=== PATIENT | male | born 1965 | race Caucasian/White ===

== ENCOUNTER 2024-01-19 08:41 | Inpatient (IN) | payer OTHER, SELFPAY ==
[2024-01-19] VITALS (10 sets, daily range): BP systolic 133–159; BP diastolic 69–95; PULSE 89–107; RESP 20–28; TEMP 36.4–36.6; O2SAT 86–96; BMI 32.6
--- NOTE | ~2024-01-19 | XR_ITS ---
EXAMINATION: XR CHEST CLINICAL INFORMATION: Dyspnea COMPARISON: Chest radiograph from 05/09/2014 TECHNIQUE: Frontal view of the chest was obtained. FINDINGS: Upper inflation bilateral lung bae. Bronchial thickening which can be seen in setting of infectious/inflammatory etiology. Bibasilar atelectasis, right greater than left. No pneumothorax. Trachea is midline. Sternotomy wires and surgical clips. Left chest wall pacer, stable. Cardiomediastinal silhouette is stable. No large pleural effusion. Osseous structures are intact. Soft tissues are unremarkable. XR/XR chest 1V IMPRESSION: 1. Upper inflation bilateral lung bae. 2. Bronchial thickening which can be seen in setting of infectious/inflammatory etiology. 3. Bibasilar atelectasis, right greater than left.
--- NOTE | 2024-01-19 08:52 | ECG_ITS ---
Test Reason : DYSPNEA Blood Pressure : / mmHG Vent. Rate : 090 BPM Atrial Rate : 090 BPM P-R Int : 204 ms QRS Dur : 188 ms QT Int : 448 ms P-R-T Axes : 080 260 074 degrees QTc Int : 548 ms Atrial-sensed ventricular-paced rhythm Abnormal ECG When compared with ECG of 09-MAY-2014 09:23, Vent. rate has increased BY 30 BPM Referred By: Taylor Devine Electronically Signed By:Paul Schuler
--- NOTE | 2024-01-19 09:00 | ED_ITS ---
HPI - SOB/Dyspnea General Chief Complaint: Dyspnea Stated Complaint: SOB Time Seen by Provider: 01/19/24 08:47 Source: patient and EMS Mode of arrival: EMS Limitations: no limitations History of Present Illness HPI Narrative: 58 yo male with PMH of COPD not on home O2 still actively smoking, PPM, aortic mechanical valve on coumadin he and his fiancee have had URI for 6 days. He is not getting better, cough, sputum production fevers. Has been taking nebulizers without relief. He is vaccinated against the flu and COVID. He comes in with worsening breathing since yesterday EMS found him 86% on RA. He was given 4L with improvement in O2. MD elicited complaint: shortness of breath and cough Pertinent past history: COPD Onset (ago): day(s) (6) Context: recent illness Timing: progressively worsening Severity: moderate Exacerbating factors: exertion, movement and coughing Relieving factors: oxygen, rest and bronchodilators Known history of: COPD Associated symptoms: fever, cough, wheezing and sputum production Treatment prior to arrival: oxygen Related Data Allergies Allergy/AdvReac Type Severity Reaction Status Date / Time meperidine [From DEMEROL] Allergy Unknown UNKNOWN Verified 01/19/24 08:57 penicillin V Allergy Unknown Unknown Verified 01/19/24 08:57 Penicillins [PENICILLINS] Allergy Unknown UNKNOWN Verified 01/19/24 08:57 Review of Systems 2 Review of Systems: Constitutional : pos Fever, pos Chills ENT/Mouth : No Hoarseness, No sore throat, No Rhinorrhea Eyes: No Redness, No Discharge, No Vision Changes Cardiovascular : No Chest Pain, positive SOB, positive Dyspnea on Exertion, No Edema Respiratory : positive Cough, pos Sputum, positive Wheezing, Gastrointestinal : No Nausea, No Vomiting, No Diarrhea, No abdominal Pain Genitourinary : No Dysuria, No Hematuria Musculoskeletal : No joint pain, No Myalgias Skin : No rash Neuro : No Weakness, No Numbness, No Headache Psych : No anxiety, depression All other systems reviewed and are negative [facility] Past Medical History Attestation statement: The following information was validated with the patient. Source: old records reviewed Medical History (Updated 01/19/24 @ 10:17 by Taylor Devine DO) Pacemaker COPD (chronic obstructive pulmonary disease) Surgical History (Updated 01/19/24 @ 09:06 by Taylor Devine DO) Mechanical heart valve present Social History Social History (Updated 01/19/24 @ 09:06 by Taylor Devine DO) Patient Tobacco Use Status: Current everyday Tobacco user Smoked in Last 30 Days: Yes Use of substances other than those prescribed or required for medical reasons: No Advance Directives: No Advance Directives Information Provided: No Physical Exam 2 Vital Signs: Vital Signs: Last Vital Signs Temp 97.9 F 01/19/24 08:57 Pulse 96 01/19/24 10:16 Resp 22 H 01/19/24 10:16 BP 140/80 H 01/19/24 10:11 Pulse Ox 92 01/19/24 10:11 O2 Del Method Nasal Cannula 01/19/24 10:11 O2 Flow Rate 4 01/19/24 10:11 Oxygen Flow Rate 4 01/19/24 08:57 BMI result Body Mass Index 32.6 Appearance: Alert. Oriented X3. Mild acute distress. Eyes: Pupils equal, round and reactive to light. ENT: Pharynx normal. Neck: Normal inspection. Neck supple. CVS: Normal heart rate and rhythm. Pulses normal. Respiratory: Mild respiratory distress tachypnea and retractions. Breath sounds diminished with diffuse wheezes noted throughout and rhonchi Abdomen: Soft and nontender. Skin: Skin warm and dry. Normal skin color. Normal skin turgor. Extremities: No lower extremity edema. Neuro: Oriented X 3. No motor deficit. No sensory deficit. Course Course Course Narrative: improving but still requires O2 will admit for further workup on O2 and neb sat 97% I informed him of desire of admission given need for O2 and he states he doesn't want to stay due to concern for fiancee being alone. At this time I told him I don't recommend this. His fiancee encourages him to stay. He is alert and oriented x 3. He is aware of his INR. He is not altered. He is not hypoxic during the conversation. He is having a normal coherent conversation and is aware both of us want him to stay. He would have to leave AMA. He does not have any acute issues that would make him not have the ability to sign out AMA. patient agrees to stay Medications Administered Discontinued Medications Generic Name Dose Route Start Last Admin Trade Name Freq PRN Reason Stop Dose Admin Albuterol Sulfate 5 mg/ 0 mg 01/19/24 09:00 01/19/24 09:03 Albuterol/Ipratropium 3 ml INHALE 01/19/24 09:01 1 each ONCE ONE Administration Albuterol Sulfate 2.5 mg/ 0 mg 01/19/24 10:13 01/19/24 10:15 Albuterol/Ipratropium 3 ml INHALE 01/19/24 10:14 1 dose ONCE ONE Administration Ceftriaxone Sodium 1 gm/ 50 mls @ 100 mls/hr 01/19/24 09:18 01/19/24 10:03 Sodium Chloride IV 01/19/24 09:47 Infused ONCE ONE Infusion Methylprednisolone Sodium Succinate 60 mg 01/19/24 08:52 01/19/24 09:20 Methylprednisolone Sod Succ 125 Mg/2 Ml Vial IVPUSH 01/19/24 08:53 60 mg ONCE ONE Administration Potassium Chloride 40 meq 01/19/24 10:00 01/19/24 10:07 Potassium Chloride Packet 20 Meq Packet PO 01/19/24 10:01 40 meq ONCE ONE Administration Medical Decision Making Medical Decision Making MDM Narrative: 58 yo male with PMH of COPD not on home O2 still actively smoking, PPM, aortic mechanical valve on coumadin here with recent URI worsening now with hypoxia at this time IV steroids, CXR, basic labs, cultures, lactic acid will start on empiric azithromycin. Suspect viral vs pneumonia. Likely admit given new O2 demands unless he has significant response to treatments which is unlikely at this time Differential Diagnosis Differential Diagnoses: The differential diagnosis associated with the presentation includes pneumonia, COPD, viral sydnrome Admission/Observation Consideration of admission/observation: Escalation of care including admission/observation considered hypoxia needs will admit confirmed with RN production welding supervisor and ED RN director that patient's spouse can stay with him now the patient will stay Consult Healthcare Provider Management of the patient was discussed with: Hospitalist (will admit) Lab Data [facility] Lab Attestation statement: I reviewed the patient's lab results. INR elevated but no bleeding and valve in place will just hold coumadin at this time 01/19/24 09:05 01/19/24 09:05 Labs: Lab Results 01/19/24 01/19/24 01/19/24 Range/Units 09:05 09:18 09:27 WBC 6.1 (4.8-10.8) X10*3/uL RBC 5.33 (4.60-5.80) X10*6/uL Hgb 15.8 (14.0-18.0) g/dl Hct 45.2 (42.0-52.0) % MCV 84.8 (80.0-98.0) fL MCH 29.6 (27.0-33.0) pg MCHC 35.0 (31.0-36.0) g/dl RDW 12.7 (11.0-16.0) % Plt Count 136 L (160-400) X10*3/uL MPV 11.6 (9.4-12.4) fL Immature Gran % (Auto) 0.3 (0.0-0.4) % Neut % (Auto) 62.6 (45-73) % Lymph % (Auto) 28.3 (20-40) % [place] % (Auto) 6.0 (2-11) % Eos % (Auto) 2.3 (0-4) % Baso % (Auto) 0.5 (0-2) % Lymph # (Auto) 1.7 (1.2-4.9) X10*3/uL [place] # (Auto) 0.4 (0.1-1.2) X10*3/uL Eos # (Auto) 0.1 (0.0-0.4) X10*3/uL Baso # (Auto) 0.0 (0.0-0.2) X10*3/uL Abs Immat Gran (auto) 0.02 (0.00-0.03) X10*3/uL Absolute Neuts (auto) 3.8 (2.0-8.3) x10*3/uL Absolute Nucleated RBC 0.000 (0.0-0.012) X10*3/uL Nucleated RBC % (auto) 0.0 (0.0-0.2) /100WBC Smear Tech's Comments VERIFIED PT 136.4 H (11.1-13.3) SEC INR 11.2 H* (0.9-1.1) VBG pH 7.43 (7.32-7.43) VBG pCO2 46 mmHg VBG pO2 42 mmHg VBG HCO3 31 H (22-26) mmol/L VBG O2 Saturation 70.0 % VBG Base Excess 6.3 mmol/L Sodium 140 (135-145) mmol/L Potassium 3.2 L (3.3-5.1) mmol/L Chloride 100 (96-108) mmol/L Carbon Dioxide 30 H (22-29) mmol/L Anion Gap 13 (12-20) BUN 7 L (9-16) mg/dL Creatinine 0.81 (0.5-1.4) mg/dL Estim Creat Clear Calc 106.2 Estimated GFR > 60 Random Glucose 104 (60-115) mg/dL Lactic Acid 1.1 (0.5-2.0) mmol/L Calcium 9.1 (8.4-10.2) mg/dL Magnesium 1.8 (1.6-2.6) mg/dL Total Bilirubin 0.9 (0.0-1.0) mg/dL Direct Bilirubin 0.4 (0.0-0.5) mg/dL AST 27 (5-37) U/L ALT 17 (0-40) U/L Alkaline Phosphatase 87 (39-117) U/L Troponin I High Sens 5.6 (<3.5-35.0) ng/L B-Natriuretic Peptide 11 (<100) pg/mL Total Protein 6.9 (6.5-8.0) g/dL Albumin 3.6 (3.5-5.0) g/dL Procalcitonin 0.10 ng/mL Urine Color Dark Yellow Urine Appearance Clear Urine pH 6.5 (5.0-9.0) Ur Specific [place] 1.025 (1.005-1.025) Urine Protein Trace (Neg-Trace) mg/dL Urine Glucose (UA) Negative (Negative) mg/dL Urine Ketones 40 (Negative) mg/dL Urine Blood Negative (Negative) Urine Nitrite Negative (Negative) Ur Leukocyte Esterase Trace H (Negative) Influenza Type A (PCR) NEGATIVE (Negative) Influenza Type B (PCR) NEGATIVE (Negative) RSV RNA Qual (PCR) NEGATIVE (Negative) SARS-CoV-2 RNA (RT-PCR) NEGATIVE (Negative) Independent Interpretation I performed an independent interpretation of an: EKG and Plain X-Ray (bronchitis) Interpretation: Rate: 90 Rhythm: ventricular paced [place]: left wide QRS complex. ST T wave : no KEVIN, inverted t waves I and aVL qTC: 548 prior studies: no acute ischemia The study has been interpreted contemporaneously by me. . Radiology Impression Discussion of test interpretation with radiology: I have reviewed the radiologist's reading. Independent Historian Clinical information obtained from an independent historian. History obtained from or confirmed by: Spouse and EMS External Record Review External record reviewed: Outpatient record Critical Care Time Critical Care Time Critical Care Time: Yes Total Critical Care Time: 40 Attestation: repeat nebs, EMS discussion, hypoxia correction, admission I attest to this time spent taking care of the patient Discharge Plan Discharge Clinical Impression: Acute exacerbation of chronic obstructive airways disease, Elevated INR, Hypoxia, Hypokalemia Patient Disposition: Admitted As Inpatient
[2024-01-19] MEDS: Albuterol Sulfate 5 MG, Albuterol/Iprat 2.5/0.5MG 3 ML 3 ML INHALE (09:03)
[2024-01-19] MEDS: methylPREDNISolone Sod Succ 125 MG/2 ML VIAL 60 MG IVPUSH (09:20)
[2024-01-19 09:23] LABS: Venous Blood Gas Refer to POC result
[2024-01-19] MEDS: cefTRIAXone sodium 1 GM in 0.9 % Sodium Chloride 50 ML IV (09:23)
[2024-01-19 09:24] LABS: VBG Base Excess 6.3 mmol/L; VBG HCO3 31 mmol/L (22-26); VBG pCO2 46 mmHg; VBG pH 7.43 (7.32-7.43); VBG pO2 42 mmHg
[2024-01-19 09:26] LABS: Basophils Percent Auto 0.5 % (0-2); Eosinophils Absolute Auto 0.1 X10*3/uL (0.0-0.4); Eosinophils Percent Auto 2.3 % (0-4); Hematocrit 45.2 % (42.0-52.0); Hemoglobin 15.8 g/dl (14.0-18.0); Imm Gran Abs Auto 0.02 X10*3/uL (0.00-0.03); Imm Gran Pct Auto 0.3 % (0.0-0.4); Lymphocytes Absolute Auto 1.7 X10*3/uL (1.2-4.9); Lymphocytes Percent Auto 28.3 % (20-40); MANUAL DIFF FLAG SCAN; Mean Corpuscular Hemoglobin 29.6 pg (27.0-33.0); Mean Corpuscular Volume 84.8 fL (80.0-98.0); Mean Platelet Volume 11.6 fL (9.4-12.4); Monocytes Absolute Auto 0.4 X10*3/uL (0.1-1.2); Neutrophils Absolute Auto 3.8 x10*3/uL (2.0-8.3); Neutrophils Percent Auto 62.6 % (45-73); Platelet Count 136 X10*3/uL (160-400); Red Blood Count 5.33 X10*6/uL (4.60-5.80); Red Cell Distribution Width 12.7 % (11.0-16.0); SCAN SMEAR FLAG 1; White Blood Count 6.1 X10*3/uL (4.8-10.8)
--- NOTE | 2024-01-19 09:30 | PC.NURSE ---
a&ox4. sinus tachy on the monitor car operator. pt presents to ED w/ sob/productive cough/fever x 6 days. hx asthma/copd. pt 86% RA upon EMS arrival - pt placed on 4L via NC - brought up to 100%. pt now resting at 4L via NC in ED - 96%. sob/wob noted. pt is tachypneic. wheezing noted throughout upon auscultation. pt positioned upright to promote patent airway. pt receiving albuterol treatment via RT. 18gIV placed in the left AC via EMS - labs obtained/sent to lab. medication administered per provider order. urine obtained/sent to lab. ekg performed by tech. xray bedside/completed. pt seen by ED provider. partner bedside for support. plan of care ongoing. call mccoy placed within reach.
[2024-01-19 09:37] LABS: Prothrombin Time 136.4 SEC (11.1-13.3)
[2024-01-19 09:44] LABS: Lactic Acid 1.1 mmol/L (0.5-2.0)
[2024-01-19 09:46] LABS: Appearance Urine Clear; Color Urine Dark Yellow; Glucose Urine UA Negative (Negative); Leukocyte Esterase Urine Trace (Negative); Nitrite Urine Negative (Negative); PH 6.5 (5.0-9.0); Specific Gravity - Urine 1.025 (1.005-1.025); UMIC TRIGGER UACC YES; Urine Blood Negative (Negative); Urine Ketones 40 mg/dL (Negative); Urine Protein Trace mg/dL (Neg-Trace)
[2024-01-19 09:54] LABS: Alanine Aminotransferase 17 U/L (0-40); Albumin Level 3.6 g/dL (3.5-5.0); Alkaline Phosphatase 87 U/L (39-117); Anion Gap 13 (12-20); Aspartate Amino Transferase 27 U/L (5-37); B Type Natriuretic Peptide 11 pg/mL (<100); Bilirubin Direct 0.4 mg/dL (0.0-0.5); Bilirubin Total 0.9 mg/dL (0.0-1.0); Blood Urea Nitrogen 7 mg/dL (9-16); Calcium 9.1 mg/dL (8.4-10.2); Carbon Dioxide 30 mmol/L (22-29); Chloride 100 mmol/L (96-108); Creatinine Clr Calc Pharmacy 106.2; Estimated Glomerular Filt Rate > 60; Glucose Random 104 mg/dL (60-115); INTERNATIONAL NORM RATIO 11.2 (0.9-1.1); Magnesium 1.8 mg/dL (1.6-2.6); Potassium 3.2 mmol/L (3.3-5.1); Sodium 140 mmol/L (135-145); Total Protein 6.9 g/dL (6.5-8.0)
[2024-01-19 09:55] LABS: Troponin-I High Sensitivity 5.6 ng/L (<3.5-35.0)
[2024-01-19] MEDS: Potassium Chloride Packet 20 MEQ PACKET 40 MEQ PO (10:07)
--- NOTE | 2024-01-19 10:08 | PC.NURSE ---
sob/wob still noted post breathing treatment. pt remains on 4L via NC - 92%. respirations even/slightly labored. remains in high fowlers position. medication administered per provider order. partner bedside for support. plan of care ongoing.
[2024-01-19] MEDS: Albuterol Sulfate 2.5 MG, Albuterol/Iprat 2.5/0.5MG 3 ML 3 ML INHALE (10:15)
[2024-01-19 10:23] LABS: SLIDE REVIEW VERIFIED
[2024-01-19 10:24] LABS: Influenza A PCR NEGATIVE (Negative); Influenza B PCR NEGATIVE (Negative); Resp Syncy Virus RNA Qual PCR NEGATIVE (Negative); SARS COV2 PCR INHOUSE NEGATIVE (Negative)
--- NOTE | 2024-01-19 10:57 | PC.NURSE ---
pt verbalizing that he wants to leave AMA. Dr. Devine notified/aware. education/importance of staying for medical interventions provided to pt and his partner at this time. pt states that he does not want to stay because his partner is not able to stay in the hospital with him when he would be admitted. pt states he has a concern for her safety at their home.
--- NOTE | 2024-01-19 11:11 | PC.NURSE ---
per research and development director, Karolina Santos - pt's partner is able to stay w/ patient upstairs once he is admitted. pt is no longer leaving AMA and would like to proceed w/ care in ED and further into admission. plan of care ongoing at this time.
--- NOTE | 2024-01-19 11:30 | PM.IMHP ---
History of Present Illness Date of Service: 01/19/24 Attending physician on admission: [facility] Chief Complaint: sob, cough 58year old male with history of COPD not on home O2, pacemaker in place, htn, chronic low back pain with opioid dependence, and aortic valve replacement on coumadin (follows with [employer]) presented to the ED for evaluation of sob, wheezing, and productive cough with yellow sputum ongoing x 8 days that has been progressively worsening. Limited improvement with albuterol inhalers at home. Reports tom is sick at home with similar symptoms. NO fevers, chills, ST, abd pain, n/v/d, urinary symptoms, lightheadedness, palpitations, or chest pain. Previously smoking 2-3 packs per day, has cut back to 1ppd in recent years (smoking [id number]). No illicit drug use or alcohol use. In the ED, patient afebrile, noted on my exam to desaturate to 81% on RA placed back on 3L supplemental O2. Vitals otherwise stable. No leukocytosis. Renal function and lytes normal except K3.2, CO2 30. Lactic acid 1.1. Trop 5.6, BNP 11. PCT 0.1. UA unremarkable. VBG reassuring with ph 4.43, pco2 46, bicarb 31. CXR shows bronchial thickening, bibasilar atelectasis. EKG shows atrial sensed ventricular paced rhythm, rate 90, no st/twave abnormality. In the ED, given mehtylprednisolone, kcl 40meq, 1g iv ctx, duonebs without much improvement in symptoms. Review of Systems Review of Systems: General: No fevers, malaise, unintentional weight loss HEENT: No blurred vision, diplopia. No sore throat, nasal congestion, rhinorrhea, sinus pain, ear pain Cardiovascular: No chest pain, palpitations, or leg edema Respiratory: + shortness of breath, + wheezing, + cough GI: No abdominal pain, nausea, vomiting, diarrhea, constipation, melena, hematochezia : No dysuria, hematuria, increased urinary frequency, decreased urinary output MSK: No myalgia, back pain Neuro: No headaches, weakness, paresthesias Skin: No rashes or lesions [facility] Medical History Pacemaker COPD (chronic obstructive pulmonary disease) Surgical History Mechanical heart valve present Social History Patient Tobacco Use Status: Never used Tobacco Smoked in Last 30 Days: Yes Use of substances other than those prescribed or required for medical reasons: No Advance Directives: No Advance Directives Information Provided: No Nutrition Risks: No Nutritional Risk service: No Meds Allergies Allergy/AdvReac Type Severity Reaction Status Date / Time meperidine [From DEMEROL] Allergy Unknown UNKNOWN Verified 01/19/24 08:57 penicillin V Allergy Unknown Unknown Verified 01/19/24 08:57 Penicillins [PENICILLINS] Allergy Unknown UNKNOWN Verified 01/19/24 08:57 Home Medications Medication Instructions Recorded Confirmed Last Taken Type albuterol sulfate 90 mcg/actuation 1 - 2 puff inhalation Q4-6H PRN 01/19/24 01/19/24 Unknown History aerosol inhaler (Ventolin HFA) dyspnea clonazepam 2 mg tablet 2 mg PO BID 01/19/24 01/19/24 01/19/24 History dextroamphetamine-amphetamine 30 1 tab PO BID 01/19/24 01/19/24 01/19/24 History mg tablet gabapentin 800 mg tablet 800 mg PO BID 01/19/24 01/19/24 01/19/24 History hydromorphone 8 mg tablet 8 mg PO TID PRN Pain 01/19/24 01/19/24 Unknown History nicotine 21 mg/24 hr daily 1 patch topical DAILY 01/19/24 01/19/24 Unknown History transdermal patch omeprazole 20 mg capsule,delayed 20 mg PO DAILY 01/19/24 01/19/24 01/19/24 History release oxycodone 15 mg tablet 15 mg PO TID 01/19/24 01/19/24 01/19/24 History umeclidinium 62.5 mcg/actuation 1 inh inhalation DAILY 01/19/24 01/19/24 01/19/24 History blister powder for inhalation (Incruse Ellipta) warfarin 2 mg tablet 2 mg PO DAILY 01/19/24 01/19/24 01/17/24 History warfarin 4 mg tablet 4 mg PO DAILY 01/19/24 01/19/24 01/17/24 History Physical Exam Vital Signs and Narrative: Vital Signs: Last Vital Signs Temp 97.6 F 01/19/24 11:08 Pulse 89 01/19/24 11:08 Resp 24 H 01/19/24 11:08 BP 133/74 01/19/24 11:08 Pulse Ox 94 01/19/24 11:08 O2 Del Method Nasal Cannula 01/19/24 11:08 O2 Flow Rate 4 01/19/24 11:08 Oxygen Flow Rate 4 01/19/24 08:57 BMI result Body Mass Index 32.6 Constitutional - Awake and Alert, No apparent distress Eyes - PERRLA, EOMI Cardiovascular - S1S2, RRR, No edema Respiratory - Normal lung expansion, Normal respiratory effort, No respiratory distress on 3L supplemental O2, coarse expiratory wheezing bilaterally, diminished bases Gastrointestinal - NT / ND; +BS; No rebound or guarding Extremities - no calf tenderness bilaterally, no swelling Skin - Warm/Dry Neurological - Alert & oriented x3, Psychological - Appropriate affect Results Labs 01/20/24 06:17 01/20/24 06:17 Labs: Laboratory Results - last 24 hr 01/19/24 01/19/24 01/19/24 09:05 09:18 09:27 MCV 84.8 MCH 29.6 MCHC 35.0 RDW 12.7 Plt Count 136 L MPV 11.6 Immature Gran % (Auto) 0.3 Neut % (Auto) 62.6 Lymph % (Auto) 28.3 [place] % (Auto) 6.0 Eos % (Auto) 2.3 Baso % (Auto) 0.5 Lymph # (Auto) 1.7 [place] # (Auto) 0.4 Eos # (Auto) 0.1 Baso # (Auto) 0.0 Abs Immat Gran (auto) 0.02 Absolute Neuts (auto) 3.8 Absolute Nucleated RBC 0.000 Nucleated RBC % (auto) 0.0 Smear Tech's Comments VERIFIED PT 136.4 H INR 11.2 H* VBG pH 7.43 VBG pCO2 46 VBG pO2 42 VBG HCO3 31 H VBG O2 Saturation 70.0 VBG Base Excess 6.3 Anion Gap 13 Estim Creat Clear Calc 106.2 Estimated GFR > 60 Random Glucose 104 Lactic Acid 1.1 Calcium 9.1 Magnesium 1.8 Total Bilirubin 0.9 Direct Bilirubin 0.4 AST 27 ALT 17 Alkaline Phosphatase 87 Troponin I High Sens 5.6 B-Natriuretic Peptide 11 Total Protein 6.9 Albumin 3.6 Procalcitonin 0.10 Urine Color Dark Yellow Urine Appearance Clear Urine pH 6.5 Ur Specific [place] 1.025 Urine Protein Trace Urine Glucose (UA) Negative Urine Ketones 40 Urine Blood Negative Urine Nitrite Negative Ur Leukocyte Esterase Trace H Influenza Type A (PCR) NEGATIVE Influenza Type B (PCR) NEGATIVE RSV RNA Qual (PCR) NEGATIVE SARS-CoV-2 RNA (RT-PCR) NEGATIVE Imaging Radiologist's Impressions: Impressions Chest X-Ray 01/19/24 09:20 IMPRESSION: 1. Upper inflation bilateral lung bae. 2. Bronchial thickening which can be seen in setting of infectious/inflammatory etiology. 3. Bibasilar atelectasis, right greater than left. Assessment and Plan (1) Acute exacerbation of chronic obstructive airways disease: Status: Acute (2) Elevated INR: Status: Acute (3) Hypoxia: Status: Acute (4) Hypokalemia: Status: Acute Plan 58year old male with history of COPD not on home O2, pacemaker in place, htn, chronic low back pain with opioid dependence, and aortic valve replacement on coumadin (follows with [employer]) who is a current 1PPD smoker admitted for COPD exacebration with acute hypoxemic respiratory failure. #Acute COPD exacerbation with acute hypoxemic respiratory failure -VBG reassuring. Continue supplemental O2 to maintain oximetry 90-92% -CXR negative for focal consolidation but shows bronchial thickening -IV methylprednisolone 40mg BID -duonebs q4h while awake -albuterol prn -doxycycline 100mg BID -Neg covid, flu, rsv. check viral respiratory panel -feels he needs home O2. Consider eval prior to discharge #Supratherapeutic INR with mechanical aortic valve in place -INR 11.2, goal 2.5-3.5 -not bleeding at this time. Recommended 2.5mg PO vitamin K x1 but patient refusing. Discussed with Dr. Schuler. Can hold off on vitamin K at this time given pt not bleeding. -hold coumadin -monitor INR daily #acute hypokalemia -likely r/t albtuerol use -repleted in ed -follow lytes #Chronic low back pain -continue hydromorphone, oxycodone, gabapentin #HTN -continue metoprolol #Cigarette smoker -counseled on cessation -declines NRT at this time DVT prophylaxis- coumadin on hold on at this time due to supratherapeutic inr full code pt requires inpt stay at least 2 midnights for evaluation of copd exacerbation with acute hypoxemic respiratory failure wtih oximetry 81% on RA on my exam requiring supplemental O2, IV steroids, scheduled nebulizers and clsoe monitoring Quality Stroke Does the patient have a stroke diagnosis?: No VTE Prior VTE?: No VTE Risk Level:: Medical - moderate - high VTE Device Contraindication: Treatment Not Indicated VTE Drug Contraindication: N/A - Med Ordered
[2024-01-19 11:43] LABS: WBC Urine 0-5 /HPF (0-5)
[2024-01-19 11:44] LABS: Bacteria Urine None Seen (None Seen); Hyaline Casts Urine 0-2 /LPF (0-2); Squamous Epithelial Cell Urine 0-2 /HPF (0-2)
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
[2024-01-19] MEDS: Doxycycline Hyclate 100 MG in 0.9 % Sodium Chloride 250 ML 166.67 MG IV ×2 (12:41→23:54)
--- NOTE | 2024-01-19 13:25 | PC.NURSE ---
pt refusing PO vitamin k administration. admitting provider notified/aware. KIAN Jimenez bedside speaking w/ pt at this time. plan of care ongoing.
--- NOTE | 2024-01-19 14:20 | PC.NURSE ---
vitamin k not administered d/t pt refusal. pt continues to wait for bed assignment at this time.
--- NOTE | 2024-01-19 14:24 | PHA.MEDREC ---
Addendum entered by Jean Reyes [facility] 01/19/24 14:52: Patient clarified and said that his PCP Dr. Dev Granados ordered him to take warfarin 10 mg daily on tuesday 01/09 and wednesday 01/10 because his INR was low and then go back to his regular dose of 6 mg daily. He has been taking 6 mg daily since 01/11 and his last dose was on 01/17/24. Original Note: Pharmacy Consult ? Medication Reconciliation Pharmacy has completed the medication reconciliation. Spoke to patient and confirmed medication list. Patient is on 3 different strengths of warfarin, he says the dose changes depending on his INR. His last dose was 6mg taken on friday. He is taking omeprazole 20 mg as 1 cap qd and gabapentin 800 mg bid.
[2024-01-19 14:25] LABS: Adenovirus PCR Not Detected (Not Detect.); Bordetella parapertussis PCR Not Detected (Not Detect.); Bordetella pertussis PCR Not Detected (Not Detect.); Chlamydia pneumoniae PCR Not Detected (Not Detect.); Coronavirus 229E PCR Not Detected (Not Detect.); Coronavirus HKU1 PCR Not Detected (Not Detect.); Coronavirus NL63 PCR Not Detected (Not Detect.); Coronavirus OC43 PCR Not Detected (Not Detect.); Human metapneumovirus PCR Detected (Not Detect.); Influenza A PCR Not Detected (Not Detect.); Influenza B PCR Not Detected (Not Detect.); Mycoplasma pneumoniae PCR Not Detected (Not Detect.); Parainfluenza 1 PCR Not Detected (Not Detect.); Parainfluenza 2 PCR Not Detected (Not Detect.); Parainfluenza 3 PCR Not Detected (Not Detect.); Parainfluenza 4 PCR Not Detected (Not Detect.); RSV PCR Not Detected (Not Detect.); Rhino/Enterovirus PCR Not Detected (Not Detect.)
[2024-01-19] MEDS: Albuterol/Iprat 2.5/0.5MG 3 ML AMPUL.NEB INHALE ×2 (14:56→19:23)
[2024-01-19 15:15] LABS: SARS-CoV-2 PCR Not Detected (Not Detect.)
[2024-01-19] MEDS: oxyCODONE HCl Immed Release 15 MG TABLET PO ×2 (15:39→21:07)
--- NOTE | 2024-01-19 15:41 | PC.NURSE ---
vss and up to date. pt remains sinus tachy on the youth nutritional monitor. HR 100-110s. pt remains on 3L via NC at this time - 91%. slight sob/wob noted when conversating w/ pt. pt remains tachypneic. pt repositioned upright to promote patent airway. pt medicated per provider order. pt waiting for bed assignment at this time. plan of care ongoing. call mccoy placed within reach.
[2024-01-19] MEDS: 0.9 % Sodium Chloride Flush 3 ML SYRINGE IVFLUSH ×2 (15:42→23:54)
--- NOTE | 2024-01-19 18:37 | PC.NURSE ---
vss and up to date. sinus tachy on the pvc monitor. pt states he is still feeling sob at this time while eating. this RN educated pt on the importance of keeping NC in the correct place so oxygen can be administered. 93% on 3L via NC when in correct placement. pt positioned upright/eating dinner at this time in no apparent distress. partner bedside at this time. plan of care ongoing. call mccoy placed within reach.
[2024-01-19] MEDS: clonazePAM 1 MG TABLET 2 MG PO (21:07)
[2024-01-19] MEDS: Gabapentin 400 MG CAPSULE 800 MG PO (21:08)
[2024-01-19] MEDS: methylPREDNISolone Sod Succ 40 MG/ML VIAL IVPUSH (21:08)
[2024-01-19] MEDS: HYDROmorphone HCl 2 MG TABLET 8 MG PO (21:11)
[2024-01-20] MEDS: Omeprazole 20 MG CAPSULE.DR PO (05:39)
[2024-01-20] MEDS: Acetaminophen 325 MG TABLET 650 MG PO (05:40)
[2024-01-20] MEDS: HYDROmorphone HCl 2 MG TABLET 8 MG PO (05:50)
[2024-01-20 06:23] LABS: MANUAL DIFF FLAG NO
[2024-01-20 06:44] LABS: Anion Gap 14 (12-20); Blood Urea Nitrogen 10 mg/dL (9-16); Calcium 9.7 mg/dL (8.4-10.2); Carbon Dioxide 27 mmol/L (22-29); Chloride 107 mmol/L (96-108); Creatinine Clr Calc Pharmacy 101.2; Estimated Glomerular Filt Rate > 60; Glucose Random 164 mg/dL (60-115); Potassium 4.7 mmol/L (3.3-5.1); Sodium 143 mmol/L (135-145)
[2024-01-20 06:55] LABS: Basophils Percent Auto 0.1 % (0-2); Hematocrit 47.5 % (42.0-52.0); Hemoglobin 16.1 g/dl (14.0-18.0); Lymphocytes Absolute Auto 0.9 X10*3/uL (1.2-4.9); Lymphocytes Percent Auto 9.1 % (20-40); Mean Corpuscular HGB Conc 33.9 g/dl (31.0-36.0); Mean Corpuscular Hemoglobin 29.4 pg (27.0-33.0); Mean Corpuscular Volume 86.7 fL (80.0-98.0); Mean Platelet Volume 11.6 fL (9.4-12.4); Monocytes Absolute Auto 0.3 X10*3/uL (0.1-1.2); Monocytes Percent Auto 2.7 % (2-11); Neutrophils Absolute Auto 8.5 x10*3/uL (2.0-8.3); Neutrophils Percent Auto 87.1 % (45-73); Platelet Count 182 X10*3/uL (160-400); Red Blood Count 5.48 X10*6/uL (4.60-5.80); Red Cell Distribution Width 12.6 % (11.0-16.0); White Blood Count 9.8 X10*3/uL (4.8-10.8)
[2024-01-20 07:01] LABS: Prothrombin Time 113.2 SEC (11.1-13.3)
[2024-01-20 07:06] LABS: INTERNATIONAL NORM RATIO 9.3 (0.9-1.1)
[2024-01-20] MEDS: Albuterol/Iprat 2.5/0.5MG 3 ML AMPUL.NEB INHALE ×4 (08:13→19:20)
[2024-01-20 08:19] VITALS: PULSE 91; RESP 20; O2SAT 94
[2024-01-20] MEDS: Nicotine 21 MG PATCH.TD24 TRANSDERMA (08:26)
[2024-01-20] MEDS: oxyCODONE HCl Immed Release 15 MG TABLET PO ×3 (08:27→21:44)
[2024-01-20] MEDS: Amphetamine Mixed Salts 10 MG TABLET 30 MG PO (08:27)
[2024-01-20] MEDS: clonazePAM 1 MG TABLET 2 MG PO ×2 (08:28→21:45)
[2024-01-20] MEDS: Gabapentin 400 MG CAPSULE 800 MG PO (08:28)
[2024-01-20] MEDS: methylPREDNISolone Sod Succ 40 MG/ML VIAL IVPUSH ×2 (08:29→21:45)
[2024-01-20] MEDS: 0.9 % Sodium Chloride Flush 3 ML SYRINGE IVFLUSH ×2 (08:33→17:38)
[2024-01-20] MEDS: Tiotropium Bromide 2.5 mcg 1 PUFF/2.5 MCG MIST.INHAL 2 PUFF INHALE (08:34)
--- NOTE | 2024-01-20 09:21 | MHC.CM.PN ---
CM met with Patient and his Fiance/HCP/Ping ([phone])at bedside, in ED/Over and addressed IMM with him, providing Patient with the original and a copy has been placed on the chart. Patient lives in an apartment with Ping; he has a scooter and a walker/cane but he has not been using them. Patient has no home O2. Home self care vs new [facility] is the tentative plan and CM has initiated and will follow for dc planning. PCP X [address] Dev Granados in [place] @ [phone].Patient will need a Lyft or Shuttle for transport to home.
--- NOTE | 2024-01-20 09:48 | PC.NURSE ---
Patient stating he has 02 at home that he uses as needed. Asking if he will be discharged today because he would like to go home. Message sent to lorin
--- NOTE | 2024-01-20 09:51 | PC.NURSE ---
provider aware of critical INR, patient refuses vit k
[2024-01-20 10:55] VITALS: PULSE 89; PULSE 94; PULSE 96; O2SAT 88; O2SAT 91; O2SAT 92
[2024-01-20 11:35] VITALS: PULSE 88; RESP 20; O2SAT 90
[2024-01-20] MEDS: Doxycycline Hyclate 100 MG in 0.9 % Sodium Chloride 250 ML 166.67 MG IV (12:09)
--- NOTE | 2024-01-20 13:14 | HO.PM.IMPN ---
Subjective Subjective Date of Service: 01/20/24 Interval History: f/u on copd exacerbation, hypoxia, seems better but not optimal Physical Exam Vital Signs: Vital Signs: Last Vital Signs Temp 97.7 F 01/19/24 18:36 Pulse 88 01/20/24 11:35 Resp 20 01/20/24 11:35 BP 146/95 H 01/19/24 18:36 Pulse Ox 93 01/19/24 18:36 O2 Del Method Nasal Cannula 01/19/24 18:36 O2 Flow Rate 3 01/19/24 18:36 Oxygen Flow Rate 4 01/19/24 08:57 BMI result Body Mass Index 32.6 General: AO X 3, no acute distress Resp: diminished breath sounds and some wheeze CVS: S1,S2,RRR GI: +BS, NT, no distention Skin: No rash Neuro: motor grossly intact Psych: appropriate affect Objective Data Active Medications Acetaminophen (Acetaminophen 325 Mg Tablet) 650 mg PO Q6H PRN PRN Reason: Pain, Mild (Pain Scale 1-3) Last Admin: 01/20/24 05:40 Dose: 650 mg Documented By: ARIELLE Albuterol Sulfate (Albuterol Sulfate (0.083%) 2.5 Mg/3 Ml Vial.Neb) 2.5 mg INHALE Q2H PRN PRN Reason: Shortness of Breath/Wheezing Albuterol/Ipratropium (Albuterol/Iprat 2.5/0.5mg 3 Ml Ampul.Neb) 3 ml INHALE RQ4H WHILE AWAKE [facility] Last Admin: 01/20/24 11:34 Dose: 3 ml Documented By: ASAD Amphetamine/Dextroamphetamine (Amphetamine Mixed Salts 10 Mg Tablet) 30 mg PO BID [facility] Last Admin: 01/20/24 08:27 Dose: 30 mg Documented By: MARA Clonazepam (Clonazepam 1 Mg Tablet) 2 mg PO BID [facility] Last Admin: 01/20/24 08:28 Dose: 2 mg Documented By: MARA Gabapentin (Gabapentin 400 Mg Capsule) 800 mg PO BID [facility] Last Admin: 01/20/24 08:28 Dose: 800 mg Documented By: MARA Hydromorphone HCl (Hydromorphone Hcl 2 Mg Tablet) 8 mg PO TID PRN PRN Reason: Pain, Severe (Pain Scale 7-10) Last Admin: 01/20/24 05:50 Dose: 8 mg Documented By: ARIELLE Doxycycline Hyclate 100 mg/ (Sodium Chloride) 250 mls @ 166.67 mls/hr IV Q12H [facility] Last Admin: 01/20/24 12:09 Dose: 166.67 mls/hr Documented By: DARINEL Methylprednisolone Sodium Succinate (Methylprednisolone Sod Succ 40 Mg/Ml Vial) 40 mg IVPUSH Q12H [facility] Last Admin: 01/20/24 08:29 Dose: 40 mg Documented By: MARA Nicotine (Nicotine 21 Mg Patch.Td24) 21 mg TRANSDERMA DAILY [facility] Last Admin: 01/20/24 08:26 Dose: 21 mg Documented By: MARA Omeprazole (Omeprazole 20 Mg Capsule.Dr) 20 mg PO DAILY@0630 [facility] Last Admin: 01/20/24 05:39 Dose: 20 mg Documented By: ARIELLE Ondansetron HCl (Ondansetron Hcl 4 Mg/2 Ml Vial) 4 mg IVPUSH Q8H PRN PRN Reason: Nausea and Vomiting Oxycodone HCl (Oxycodone Hcl Immed Release 15 Mg Tablet) 15 mg PO TID [facility] Last Admin: 01/20/24 08:27 Dose: 15 mg Documented By: MARA Senna (Sennosides 8.6 Mg Tablet) 17.2 mg PO BEDTIME PRN PRN Reason: Constipation Sodium Chloride (0.9 % Sodium Chloride Flush 3 Ml Syringe) 3 ml IVFLUSH QSHIFT [facility] Last Admin: 01/20/24 08:33 Dose: 3 ml Documented By: MARA Tiotropium [place] (Tiotropium [place] 2.5 Mcg 1 Puff/2.5 Mcg Mist.Inhal) 2 puff INHALE DAILY [facility] Last Admin: 01/20/24 08:34 Dose: 2 puff Documented By: MARA Labs 01/20/24 06:17 01/20/24 06:17 Labs: Laboratory Results - last 24 hr 01/19/24 01/20/24 13:06 06:17 MCV 86.7 MCH 29.4 MCHC 33.9 RDW 12.6 Plt Count 182 D MPV 11.6 Immature Gran % (Auto) 1.0 H Neut % (Auto) 87.1 H Lymph % (Auto) 9.1 L Bru[place] % (Auto) 2.7 Eos % (Auto) 0.0 Baso % (Auto) 0.1 Lymph # (Auto) 0.9 L [place] # (Auto) 0.3 Eos # (Auto) 0.0 Baso # (Auto) 0.0 Abs Immat Gran (auto) 0.10 H Absolute Neuts (auto) 8.5 H Absolute Nucleated RBC 0.000 Nucleated RBC % (auto) 0.0 PT 113.2 H INR 9.3 H* Anion Gap 14 Estim Creat Clear Calc 101.2 Estimated GFR > 60 Random Glucose 164 H Calcium 9.7 D Respiratory Panel [place] See Note Adenovirus (Rapid PCR) Not Detected B.pert (TEM-PCR) Not Detected B.parapertussis DNA PCR Not Detected C. pneumoniae DNA (PCR) Not Detected Coronavirus OC43 (PCR) Not Detected Coronavirus HKU1 (PCR) Not Detected Coronavirus 229E (PCR) Not Detected Coronavirus NL63 (PCR) Not Detected Human Metapneumovir PCR Detected A Influenza A (RT-PCR) Not Detected Influenza B (RT-PCR) Not Detected M. pneumoniae (PCR) Not Detected Parainfluenza 1 (PCR) Not Detected Parainfluenza 2 (PCR) Not Detected Parainfluenza 3 (PCR) Not Detected Parainfluenza 4 (PCR) Not Detected RSV (PCR) Not Detected Entero/Rhino (PCR) Not Detected SARS-CoV-2 RNA (RT-PCR) Not Detected Microbiology Microbiology Results: Microbiology 01/19/24 09:12 Blood Culture - Preliminary Blood - Venous No growth after 24 hours. 01/19/24 09:04 Blood Culture - Preliminary Blood - Venous No growth after 24 hours. Assessment and Plan (1) Hypoxia: Status: Acute (2) Elevated INR: Status: Acute (3) Acute exacerbation of chronic obstructive airways disease: Status: Acute Plan 58year old male with history of COPD not on home O2, pacemaker in place, htn, chronic low back pain with opioid dependence, and aortic valve replacement on coumadin (follows with [facility]) who is a current 1PPD smoker admitted for COPD exacebration with acute hypoxemic respiratory failure. #Acute COPD exacerbation with acute hypoxemic respiratory failure -VBG was reassuring. Continue supplemental O2 to maintain oximetry 90-92% -CXR negative for focal consolidation but shows bronchial thickening -IV methylprednisolone 40mg BID for 1 more day then change to PO -duonebs q4h while awake -albuterol prn -doxycycline 100 mg BID -Neg covid, flu, rsv. check viral respiratory panel -feels he needs home O2 but didn't qualifiy with exercise test #Supratherapeutic INR with mechanical aortic valve in place -INR 9 today, goal 2.5-3.5 -not bleeding at this time. He refused low dose vit K. Discussed with Dr. Schuler. Can hold off on vitamin K at this time given pt not bleeding. -hold coumadin -monitor INR daily #acute hypokalemia -likely r/t albtuerol use -repleted in ed and now 4.7 #Chronic low back pain -continue hydromorphone, oxycodone, gabapentin #HTN -continue metoprolol #Cigarette smoker -counseled on cessation -declines NRT at this time DVT prophylaxis- coumadin on hold on at this time due to supratherapeutic inr full code need for inpatient:management of copd exacerbation with acute hypoxemic respiratory failure wtih oximetry 81% on RA on my exam requiring supplemental O2, IV steroids, scheduled nebulizers and clsoe monitoring Quality Stroke Does the patient have a stroke diagnosis?: No VTE Prior VTE?: No VTE Risk Level:: Medical - moderate - high VTE Device Contraindication: Treatment Not Indicated VTE Drug Contraindication: N/A - Med Ordered
[2024-01-20 15:30] VITALS: PULSE 88; RESP 20; O2SAT 91
--- NOTE | 2024-01-20 19:16 | PC.NURSE ---
This RN assumed pt care @ 1900. Pt at nurses station requesting and given drink. Pt ambulates with a steady gait. Plan of care ongoing.
[2024-01-20 19:21] VITALS: PULSE 99; RESP 20; O2SAT 91
--- NOTE | 2024-01-20 20:41 | PC.NURSE ---
Pt ambulated to the restroom with a steady gait.
--- NOTE | 2024-01-20 20:43 | PC.NURSE ---
Pt requesting and given food. Plan of care ongoing.
--- NOTE | 2024-01-20 20:43 | PC.NURSE ---
Pt back into room.
[2024-01-20 21:41] VITALS: BP 167/85; PULSE 95; RESP 20; TEMP 36.6; O2SAT 93
--- NOTE | 2024-01-20 21:48 | PC.NURSE ---
Pt medicated per dec. Pt refused aderall and gabapentin. Pt ca&ox4, no signs of distress. Plan of care ongoing.
[2024-01-21] MEDS: Doxycycline Hyclate 100 MG in 0.9 % Sodium Chloride 250 ML 166.67 MG IV (00:51)
[2024-01-21] MEDS: 0.9 % Sodium Chloride Flush 3 ML SYRINGE IVFLUSH ×2 (00:55→09:11)
--- NOTE | 2024-01-21 00:59 | PC.NURSE ---
pt medicated per dec. Plan of care ongoing.
[2024-01-21] MEDS: Omeprazole 20 MG CAPSULE.DR PO (06:23)
--- NOTE | 2024-01-21 06:25 | PC.NURSE ---
Pt medicated per dec. Pts gf at bedside. Plan of care ongoing.
[2024-01-21 06:59] VITALS: BP 129/72; PULSE 78; RESP 16; TEMP 36.7; O2SAT 94
--- NOTE | 2024-01-21 07:25 | PC.NURSE ---
PT SEEN BY DR. WRIGHT, PT AWARE OF PLAN OF CARE.
[2024-01-21 07:50] VITALS: BP 135/77; PULSE 77; RESP 20; TEMP 36.6; O2SAT 92
[2024-01-21] MEDS: Albuterol/Iprat 2.5/0.5MG 3 ML AMPUL.NEB INHALE ×3 (08:11→15:15)
[2024-01-21] MEDS: Tiotropium Bromide 2.5 mcg 1 PUFF/2.5 MCG MIST.INHAL 2 PUFF INHALE (08:11)
[2024-01-21 08:19] VITALS: PULSE 78; RESP 16; O2SAT 92
--- NOTE | 2024-01-21 09:00 | PC.NURSE ---
PT IS A/O X 4 NO C/O SOB/ROBBIN NOTED SPEAKS IN FULL SENTENCES. LUNGS - DIMINISHED ALL LOBES. PT C/O 10/10 [place] SHOULDERS/NECK AND LOWER BACK PAIN. NO EDEMA NOTED. PT AMB (I) GAIT STEADY TO BATHROOM AND BTB. PT AWARE OF PLAN OF CARE. WILL CONTINUE TO MONITOR.
[2024-01-21] MEDS: oxyCODONE HCl Immed Release 15 MG TABLET PO ×2 (09:10→15:05)
[2024-01-21] MEDS: clonazePAM 1 MG TABLET 2 MG PO (09:10)
[2024-01-21] MEDS: Gabapentin 400 MG CAPSULE 800 MG PO (09:10)
[2024-01-21] MEDS: Amphetamine Mixed Salts 10 MG TABLET 30 MG PO (09:10)
[2024-01-21] MEDS: methylPREDNISolone Sod Succ 40 MG/ML VIAL IVPUSH (09:11)
--- NOTE | 2024-01-21 10:55 | PM.DS ---
DS: Providers Provider Date of Service: 01/21/24 Date of admission: 01/19/24 11:49 Primary care physician: Dev Granados DS: Diagnosis Discharge Diagnosis (1) Hypoxia: Status: Acute (2) Elevated INR: Status: Acute (3) Acute exacerbation of chronic obstructive airways disease: Status: Acute DS: Summary Hospital Course Hospital Course: Chief Complaint: sob, cough 58year old male with history of COPD not on home O2, pacemaker in place, htn, chronic low back pain with opioid dependence, and aortic valve replacement on coumadin (follows with [facility]) presented to the ED for evaluation of sob, wheezing, and productive cough with yellow sputum ongoing x 8 days that has been progressively worsening. Limited improvement with albuterol inhalers at home. Reports fijuju is sick at home with similar symptoms. NO fevers, chills, ST, abd pain, n/v/d, urinary symptoms, lightheadedness, palpitations, or chest pain. Previously smoking 2-3 packs per day, has cut back to 1ppd in recent years (smoking [id number]). No illicit drug use or alcohol use. In the ED, patient afebrile, noted on my exam to desaturate to 81% on RA placed back on 3L supplemental O2. Vitals otherwise stable. No leukocytosis. Renal function and lytes normal except K3.2, CO2 30. Lactic acid 1.1. Trop 5.6, BNP 11. PCT 0.1. UA unremarkable. VBG reassuring with ph 4.43, pco2 46, bicarb 31. CXR shows bronchial thickening, bibasilar atelectasis. EKG shows atrial sensed ventricular paced rhythm, rate 90, no st/twave abnormality. In the ED, given mehtylprednisolone, kcl 40meq, 1g iv ctx, duonebs without much improvement in symptoms. Hospital #Acute COPD exacerbation with acute hypoxemic respiratory failure. VBG was reassuring. Continue supplemental O2 to maintain oximetry 90-92%. CXR negative for focal consolidation but shows bronchial thickening. he was treated with IV steroid, bronchodilator by nebulizer. An empiric doxycycline for possible bronchitis. He has made a significant improvement and feeling better and would like to go home. His breathing is comfortable and his lungs are clear. He desire home oxygen however he did not qualify following exercise testing. Flu, RSV and covid were negative. She will be discharged home with prednisone for 3 more days and to complete a course of doxycycline for total of 5 days. #Supratherapeutic INR with mechanical aortic valve in place. His initial INR was 11, he declined vitamin K. He has not had any bleeding complication, his INR is trending down presently at and Coumadin on hold he is to follow up with the clinic to have Coumadin dose adjusted based on further INR testing. #acute hypokalemia -likely r/t albtuerol use -repleted in ed and now 4.7 Time Attestation Discharge Coordination Time (in mins): 35 minute Quality: Safe Use of Opioids Does Pt have an Active Cancer Diagnosis on the Problem List?: No Quality: Stroke Does the patient have a stroke diagnosis?: No Physical Exam Vital Signs: Vital Signs: Last Vital Signs Temp 97.8 F 01/21/24 07:50 Pulse 78 01/21/24 08:19 Resp 16 01/21/24 08:19 BP 135/77 01/21/24 07:50 Pulse Ox 92 01/21/24 07:50 O2 Del Method Room Air 01/21/24 07:50 O2 Flow Rate 3 01/19/24 18:36 Oxygen Flow Rate 4 01/19/24 08:57 BMI result Body Mass Index 32.6 DS: Data Data Completed and Pending Labs on day of discharge: Preliminary micro results at discharge 01/19/24 09:12 Blood Culture - Preliminary Blood - Venous No growth after 24 hours. 01/19/24 09:04 Blood Culture - Preliminary Blood - Venous No growth after 24 hours. Discharge Plan Discharge Anticipated Discharge Date/Time: 01/21/24 10:55 Patient Disposition: Home, Self-Care Discharge Diagnosis: acute exacerbation of COPD, elevated INR, hypokalemia Referrals: Dev Granados [Other] - 1 Week Discharge Medications: New prednisone 20 mg tablet 40 mg PO DAILY Qty: 6 0RF Continued hydromorphone 8 mg tablet 8 mg PO TID PRN (Reason: Pain) warfarin 4 mg tablet 4 mg PO DAILY oxycodone 15 mg tablet 15 mg PO TID dextroamphetamine-amphetamine 30 mg tablet 1 tab PO BID gabapentin 800 mg tablet 800 mg PO BID warfarin 2 mg tablet 2 mg PO DAILY clonazepam 2 mg tablet 2 mg PO BID nicotine 21 mg/24 hr patch 24 hour 1 patch topical DAILY omeprazole 20 mg capsule,delayed release(DR/EC) 20 mg PO DAILY albuterol sulfate [Ventolin HFA] 90 mcg/actuation HFA aerosol inhaler 1 - 2 puff INHALATION Q4-6H PRN (Reason: dyspnea) Incruse Ellipta 62.5 mcg/actuation blister with device 1 inh INHALATION DAILY Diet: Advance to usual diet Activity on Discharge: As tolerated Stand Alone Forms: Patient Portal Discharge page, Against Medical Advice Care Plan Goals: returned to baseline activity status and recovery from COPD exacerbation Health Concerns: COPD exacerbation hypokalemia elevated INR level Plan of Treatment: take prednisone as directed for COPD and continued use of inhalers, avoid smoking. you did not qualify for home oxygen. please report to Coumadin clinic and have your INR level checked and your Coumadin dose to be adjusted follow-up with your primary care doctor within a week. Call for appointment Assessment: See above
[2024-01-21 11:14] VITALS: PULSE 74; RESP 16; O2SAT 91
[2024-01-21] MEDS: Doxycycline Monohydrate 100 MG CAPSULE PO (11:39)
[2024-01-21] MEDS: HYDROmorphone HCl 2 MG TABLET 8 MG PO (12:05)
--- NOTE | 2024-01-21 12:06 | PC.NURSE ---
pt requesting prn dilaudid - medication administered per provider order.
[2024-01-21 12:11] LABS: Prothrombin Time 73.9 SEC (11.1-13.3)
[2024-01-21 12:13] LABS: INTERNATIONAL NORM RATIO 6.1 (0.9-1.1)
--- NOTE | 2024-01-21 12:15 | PC.NURSE ---
critical lab value of an INR of 6.[address] this time[address] dr[address] cline notified/aware.
--- NOTE | 2024-01-21 13:23 | PC.NURSE ---
PT AMB (I) GAIT STEADY TO BATHROOM, TOOK A SHOWER AND HAS RETURN TO BED. PT TO BE D/C HOME.
--- NOTE | 2024-01-21 14:44 | P.F2F_ITS ---
Service Date Service Date: 01/21/24 Encounter Date of encounter: 01/21/24 Reasons for Services Signs and symptoms assessed: shortness of wth little activity, fluctuating INR Reason for residential: monitoring of PT/INR and medication management Homebound: Leaving the home is medically contraindicated at this time without the asist of a device and/or another person due th the listed conditions above and below. Reason homebound: weakness related to hospital stay and unable to drive Homebound supporting statement: shortness of breath with litlle activity, fluctuating INR levels, doesn't drive and therefore needs the assistance of another person Certification: Based on the above findings, I certify that this patient is confined to the home and needs intermittent residential care, physical therapy and/or speech therapy, or continues to need occupational therapy. The patient is under my care, and I have initiated the establishment of the plan of care. The patient will be followed by a physician who will periodically review the plan of care. Time Spent With Patient Time: Total time managing care of this patient today ____ minutes.
--- NOTE | 2024-01-21 15:14 | MHC.CM.PN ---
Received notification from Ana BAHENA that patient will need his INR checked tomorrow. Patient's coumadin clinic is in [place]. Patient usually utilizes [facility]'s transportation services to get to the coumadin clinic. T/W is unable to arrange transportation for tomorow. Spoke with Samara at [facility] who will authorize [facility] for INR draws until [facility] transportation can be restarted. Referral broadcast[facility] in [facility]. [facility] is able to accept patient. Patient agreeable. Lyft scheduled for patient and his girlriend. Dr Burciaga and Ana BAHENA aware. Continue to monitor for d/c needs.
[2024-01-21 15:29] VITALS: BP 135/70; PULSE 74; RESP 16; TEMP 36.6; O2SAT 92
== END 2024-01-21 16:24 | disposition home or self-care (01) | DRG 190 ==
LOC: HO.ED 11:07 → HO.EDOVER 12:04
PROVIDERS: Admitting Provider Physician Assistant; Emergency Provider Emergency Medicine; PCP Family Medicine; Visit Provider Internal Medicine
DX: J44.1 Chronic obstructive pulmonary disease with (acute) exacerbation (principal); J96.01 Acute respiratory failure with hypoxia; F11.20 Opioid dependence, uncomplicated; M54.59 Other low back pain; I10 Essential (primary) hypertension; F17.210 Nicotine dependence, cigarettes, uncomplicated; Z71.6 Tobacco abuse counseling; E87.6 Hypokalemia; G89.29 Other chronic pain; R79.1 Abnormal coagulation profile; Z20.822 Contact with and (suspected) exposure to COVID-19; Z95.0 Presence of cardiac pacemaker; Z95.2 Presence of prosthetic heart valve; Z88.0 Allergy status to penicillin; Z79.01 Long term (current) use of anticoagulants; Z79.899 Other long term (current) drug therapy
CPT/HCPCS: 0241U; 36415; 71045; 80048; 80076; 81001; 82803; 83605; 83735; 83880; 84145; 84484; 85025; 85610; 87040; 87633; 93005; 94640; 99285; J0696; J2920; J2930

== ENCOUNTER → 2024-01-19 08:52 | Outpatient (BNV) | payer OTHER, SELFPAY | PROVIDERS: Admitting Provider Physician Assistant; Emergency Provider Emergency Medicine; Visit Provider Internal Medicine Cardiovascular Disease | DX: R06.00 Dyspnea, unspecified (principal) | CPT/HCPCS: 93010 ==

== ENCOUNTER → 2024-01-19 11:49 | Outpatient (BNV) | payer OTHER, SELFPAY | PROVIDERS: Admitting Provider Physician Assistant; Emergency Provider Emergency Medicine; Visit Provider Physician Assistant | DX: R09.02 Hypoxemia (principal); R79.1 Abnormal coagulation profile; J44.1 Chronic obstructive pulmonary disease with (acute) exacerbation | CPT/HCPCS: 99223; 99232; 99239; G0180 ==

== ENCOUNTER 2024-01-26 13:45 | Emergency (ER) | payer OTHER, SELFPAY ==
--- NOTE | ~2024-01-26 | XR_ITS ---
EXAMINATION: XR CHEST CLINICAL INFORMATION: Chest pain COMPARISON: Chest radiograph 01/19/2024 TECHNIQUE: 2 views of the chest were obtained. FINDINGS: Heart size within normal limits. Median sternotomy is again seen with clips denoting a CABG, aortic valve prosthesis and a left chest wall dual-lead pacemaker. No infiltrates, effusions or lung masses. No evidence of CHF. XR/XR chest 2V IMPRESSION: No acute intrathoracic disease.
[2024-01-26 13:50] VITALS: BP 150/119; PULSE 81; O2SAT 95
--- NOTE | 2024-01-26 13:53 | ECG_ITS ---
Test Reason : SOB Blood Pressure : / mmHG Vent. Rate : 079 BPM Atrial Rate : 079 BPM P-R Int : 254 ms QRS Dur : 186 ms QT Int : 454 ms P-R-T Axes : 066 258 085 degrees QTc Int : 520 ms Atrial-sensed ventricular-paced rhythm with prolonged AV conduction Abnormal ECG When compared with ECG of 19-JAN-2024 09:07, Vent. rate has decreased BY 11 BPM Referred By: Lisa Blount Electronically Signed By:JUAN CARLOS JARAMILLO MD
--- NOTE | 2024-01-26 13:53 | ED_ITS ---
HPI - General Adult General Chief complaint: Upper Respiratory Symptoms Stated complaint: diff breathing/cp Time Seen by Provider: 01/26/24 14:19 Source: patient and EMS Mode of arrival: EMS History of Present Illness HPI narrative: 58-year-old male with history of COPD, not oxygen dependent, is brought in by EMS for 6 days of shortness of breath, patient was recently admitted here, states he has been nauseous and vomiting with diarrhea for over 2 weeks and reports subjective fevers. Related Data Home Medications Medication Instructions Recorded Confirmed albuterol sulfate 90 mcg/actuation 1 - 2 puff inhalation Q4-6H PRN 01/19/24 01/19/24 aerosol inhaler (Ventolin HFA) dyspnea clonazepam 2 mg tablet 2 mg PO BID 01/19/24 01/19/24 dextroamphetamine-amphetamine 30 1 tab PO BID 01/19/24 01/19/24 mg tablet gabapentin 800 mg tablet 800 mg PO BID 01/19/24 01/19/24 hydromorphone 8 mg tablet 8 mg PO TID PRN Pain 01/19/24 01/19/24 nicotine 21 mg/24 hr daily 1 patch topical DAILY 01/19/24 01/19/24 transdermal patch omeprazole 20 mg capsule,delayed 20 mg PO DAILY 01/19/24 01/19/24 release oxycodone 15 mg tablet 15 mg PO TID 01/19/24 01/19/24 umeclidinium 62.5 mcg/actuation 1 inh inhalation DAILY 01/19/24 01/19/24 blister powder for inhalation (Incruse Ellipta) warfarin 2 mg tablet 2 mg PO DAILY 01/19/24 01/19/24 warfarin 4 mg tablet 4 mg PO DAILY 01/19/24 01/19/24 Previous Rx's Medication Instructions Recorded doxycycline monohydrate 100 mg 100 mg PO Q12H #7 caps 01/21/24 capsule prednisone 20 mg tablet 40 mg (2 x 20 mg) PO DAILY #6 tabs 01/21/24 Allergies Allergy/AdvReac Type Severity Reaction Status Date / Time meperidine [From DEMEROL] Allergy Unknown UNKNOWN Verified 01/19/24 08:57 penicillin V Allergy Unknown Unknown Verified 01/19/24 08:57 Penicillins [PENICILLINS] Allergy Unknown UNKNOWN Verified 01/19/24 08:57 Review of Systems 2 Review of Systems: Pertinent positives and negatives as stated in [facility] Past Medical History Source: nursing notes reviewed Medical History Pacemaker COPD (chronic obstructive pulmonary disease) Surgical History Mechanical heart valve present Social History Social History Alcohol intake: former Patient Tobacco Use Status: Never used Tobacco Smoked in Last 30 Days: Yes Use of substances other than those prescribed or required for medical reasons: No Advance Directives: No Advance Directives Information Provided: No service: No Physical Exam ED Vital Signs: Vital Signs - 24 hr 01/26/24 13:55 01/26/24 14:38 01/26/24 16:22 Temperature 98 F 97.6 F Pulse Rate 78 79 88 Respiratory Rate 24 H 17 20 Blood Pressure 135/97 H 121/78 Pulse Oximetry 94 93 Oxygen Delivery Method Room Air Room Air 01/26/24 16:31 Temperature Pulse Rate Respiratory Rate Blood Pressure Pulse Oximetry 95 Oxygen Delivery Method Room Air BMI result Body Mass Index 31.3 VITAL SIGNS: Reviewed. GENERAL: Well developed, well nourished, in no acute distress. HEAD: Normocephalic/atraumatic, EYES: PERRLA, EOMI EARS: Ext canals without abnormality NOSE: Nares patent bilateral OROPHARYNX: no oral lesions noted, posterior pharynx clear NECK: Supple, no adenopathy LUNGS: Decreased throughout with tachypnea SpO2<94> CARDIOVASCULAR: Regular rate and rhythm without noted murmurs, no JVD or lower extremity edema. ABDOMEN: Soft, epigastric discomfort, non-distended with bowel sounds. MUSCULOSKELETAL: No tenderness, deformities, or effusions noted on gross inspection. EXTREMITIES: No cyanosis, clubbing or edema. SKIN: Inspection of the skin reveals no rashes NEUROLOGIC: Alert and oriented x 4. Strength and sensation to light touch were grossly intact x 4. Medications Administered Discontinued Medications Generic Name Dose Route Start Last Admin Trade Name Freq PRN Reason Stop Dose Admin Albuterol/Ipratropium 3 ml 01/26/24 14:32 01/26/24 14:35 Albuterol/Iprat 2.5/0.5mg 3 Ml Ampul.Neb INHALE 01/26/24 14:33 3 ml ONCE ONE Administration Medical Decision Making Medical Decision Making [facility] Narrative: 1446: 58-year-old male with history and clinical presentation, DDX: Gastroenteritis, exacerbation of chronic on disease, CHF, gastritis Reviewed all investigations and there is negligible leukocytosis without anemia/thrombocytopenia. Coagulation studies demonstrates a subtherapeutic INR- 1.5. Chemistry indices do not demonstrate WAI/electrolyte or liver enzyme derangements, high sensitivity troponin is detectable but not significantly elevated without changes on EKG. Viral testing negative for influenza/RSV/COVID-19. Chest x-ray is negative for infiltrate or venous congestion otherwise my interpretation is in agreement with radiology's impression. Urinalysis is negative for UTI or hematuria. Given patient's complaints regarding nausea/vomiting/diarrhea will proceed with CT of the abdomen pelvis to rule out colitis, otherwise on re-evaluation auscultation of lungs show significant improvement, patient is not hypoxic. VBG without evidence of respiratory acidosis or significant hypercapnia. Patient has been asking for Dilaudid, he is oxygenating well without tachypnea, there have been no episodes of nausea, vomiting, diarrhea here in the emergency room. My interpretation is that patient may have developed a short exacerbation of his COPD, however there is not significant hypercapnia nor is there any evidence of respiratory acidosis or hypoxia. It is my determination that patient is safe for discharge to home and will need to follow-up with his primary care doctor. Differential Diagnosis Differential Diagnoses: The differential diagnosis associated with the presentation includes Please see the discussion above Admission/Observation Consideration of admission/observation: Escalation of care including admission/observation considered Please see the discussion above Consult Healthcare Provider Management of the patient was discussed with: Hospitalist Please see the discussion above Lab Data [facility] Lab Attestation statement: I reviewed the patient's lab results. Please see the discussion above 01/26/24 14:07 01/26/24 14:07 Labs: Lab Results 01/26/24 01/26/24 01/26/24 Range/Units 14:07 15:23 15:24 WBC 10.9 H (4.8-10.8) X10*3/uL RBC 5.85 H (4.60-5.80) X10*6/uL Hgb 17.4 (14.0-18.0) g/dl Hct 49.4 (42.0-52.0) % MCV 84.4 (80.0-98.0) fL MCH 29.7 (27.0-33.0) pg MCHC 35.2 (31.0-36.0) g/dl RDW 12.9 (11.0-16.0) % Plt Count 317 D (160-400) X10*3/uL MPV 9.9 (9.4-12.4) fL Immature Gran % (Auto) 1.2 H (0.0-0.4) % Neut % (Auto) 70.2 (45-73) % Lymph % (Auto) 20.2 (20-40) % Lamar % (Auto) 6.8 (2-11) % Eos % (Auto) 1.4 (0-4) % Baso % (Auto) 0.2 (0-2) % Lymph # (Auto) 2.2 (1.2-4.9) X10*3/uL Lamar # (Auto) 0.7 (0.1-1.2) X10*3/uL Eos # (Auto) 0.2 (0.0-0.4) X10*3/uL Baso # (Auto) 0.0 (0.0-0.2) X10*3/uL Abs Immat Gran (auto) 0.13 H (0.00-0.03) X10*3/uL Absolute Neuts (auto) 7.7 (2.0-8.3) x10*3/uL Absolute Nucleated RBC 0.000 (0.0-0.012) X10*3/uL Nucleated RBC % (auto) 0.0 (0.0-0.2) /100WBC PT 18.3 H D (11.1-13.3) SEC INR 1.5 H D (0.9-1.1) VBG pH 7.39 (7.32-7.43) VBG pCO2 45 mmHg VBG pO2 41 mmHg VBG HCO3 28 H (22-26) mmol/L VBG O2 Saturation 66.0 % VBG Base Excess 2.7 mmol/L Sodium 145 (135-145) mmol/L Potassium 3.7 D (3.3-5.1) mmol/L Chloride 111 H (96-108) mmol/L Carbon Dioxide 27 (22-29) mmol/L Anion Gap 11 L (12-20) BUN 14 (9-16) mg/dL Creatinine 0.76 (0.5-1.4) mg/dL Estim Creat Clear Calc 111.0 Estimated GFR > 60 Random Glucose 112 (60-115) mg/dL Lactic Acid 1.4 (0.5-2.0) mmol/L Calcium 8.7 D (8.4-10.2) mg/dL Total Bilirubin 0.6 (0.0-1.0) mg/dL AST 11 (5-37) U/L ALT 18 (0-40) U/L Alkaline Phosphatase 81 (39-117) U/L Troponin I High Sens 5.4 (<3.5-35.0) ng/L Total Protein 6.3 L (6.5-8.0) g/dL Albumin 3.4 L (3.5-5.0) g/dL Influenza Type A (PCR) NEGATIVE (Negative) Influenza Type B (PCR) NEGATIVE (Negative) RSV RNA Qual (PCR) NEGATIVE (Negative) SARS-CoV-2 RNA (RT-PCR) NEGATIVE (Negative) Independent Interpretation I performed an independent interpretation of an: EKG Interpretation: Paced rhythm, HR-79, OH-254, QRS-186, QTC-520, no STEMI there are no acute changes when compared to prior EKG from 01/19/2024. Radiology Impression Discussion of test interpretation with radiology: I have reviewed the radiologist's reading. Radiologist Impression: Please see the discussion above External Record Review External record reviewed: Inpatient record, Outpatient record, Prior outpatient labs and Prior outpatient radiology Chronic Conditions COPD, chronic anticoagulation Critical Care Time Critical Care Time Critical Care Time: Yes Total Critical Care Time: 60 Attestation: I personally attest to this time spent taking care of the patient. Discharge Plan Discharge Clinical Impression: COPD (chronic obstructive pulmonary disease) Patient Disposition: Home, Self-Care Instructions: COPD (Chronic Obstructive Pulmonary Disease) (ED) Additional Instructions: 1. Resume all home medications as prescribed, especially your anticoagulation. 2. Please follow-up with your primary care doctor by calling the office 1st thing in the morning and setting up an appointment for re-evaluation. 3. Your workup today was negative for any acute findings to better explain your current presentation other than a mild exacerbation of your COPD, I recommend that you continue your prescribed medication and increase the use of your rescue inhaler. I do not think it is a good idea to put you on another course of steroids at this time. Please return to the emergency room if you develop any acute worsening of your symptoms. Prescriptions: No Action hydromorphone 8 mg tablet 8 mg PO TID PRN (Reason: Pain) warfarin 4 mg tablet 4 mg PO DAILY oxycodone 15 mg tablet 15 mg PO TID dextroamphetamine-amphetamine 30 mg tablet 1 tab PO BID gabapentin 800 mg tablet 800 mg PO BID warfarin 2 mg tablet 2 mg PO DAILY clonazepam 2 mg tablet 2 mg PO BID nicotine 21 mg/24 hr patch 24 hour 1 patch topical DAILY omeprazole 20 mg capsule,delayed release(DR/EC) 20 mg PO DAILY albuterol sulfate [Ventolin HFA] 90 mcg/actuation HFA aerosol inhaler 1 - 2 puff INHALATION Q4-6H PRN (Reason: dyspnea) Incruse Ellipta 62.5 mcg/actuation blister with device 1 inh INHALATION DAILY prednisone 20 mg tablet 40 mg PO DAILY Qty: 6 0RF doxycycline monohydrate 100 mg Capsule 100 mg PO Q12H Qty: 7 0RF Referrals: Dev Granados MD [Primary Care Provider] -
[2024-01-26 13:55] VITALS: BP 135/97; PULSE 78; RESP 24; TEMP 36.6; O2SAT 94; BMI 31.3
[2024-01-26 14:12] LABS: MANUAL DIFF FLAG NO
[2024-01-26 14:14] LABS: Basophils Percent Auto 0.2 % (0-2); Eosinophils Absolute Auto 0.2 X10*3/uL (0.0-0.4); Eosinophils Percent Auto 1.4 % (0-4); Hematocrit 49.4 % (42.0-52.0); Hemoglobin 17.4 g/dl (14.0-18.0); Imm Gran Abs Auto 0.13 X10*3/uL (0.00-0.03); Imm Gran Pct Auto 1.2 % (0.0-0.4); Lymphocytes Absolute Auto 2.2 X10*3/uL (1.2-4.9); Lymphocytes Percent Auto 20.2 % (20-40); Mean Corpuscular HGB Conc 35.2 g/dl (31.0-36.0); Mean Corpuscular Hemoglobin 29.7 pg (27.0-33.0); Mean Corpuscular Volume 84.4 fL (80.0-98.0); Mean Platelet Volume 9.9 fL (9.4-12.4); Monocytes Absolute Auto 0.7 X10*3/uL (0.1-1.2); Monocytes Percent Auto 6.8 % (2-11); Neutrophils Absolute Auto 7.7 x10*3/uL (2.0-8.3); Neutrophils Percent Auto 70.2 % (45-73); Platelet Count 317 X10*3/uL (160-400); Red Blood Count 5.85 X10*6/uL (4.60-5.80); Red Cell Distribution Width 12.9 % (11.0-16.0); White Blood Count 10.9 X10*3/uL (4.8-10.8)
[2024-01-26 14:19] LABS: INTERNATIONAL NORM RATIO 1.5 (0.9-1.1); Prothrombin Time 18.3 SEC (11.1-13.3)
[2024-01-26 14:27] LABS: Alanine Aminotransferase 18 U/L (0-40); Albumin Level 3.4 g/dL (3.5-5.0); Alkaline Phosphatase 81 U/L (39-117); Anion Gap 11 (12-20); Aspartate Amino Transferase 11 U/L (5-37); Bilirubin Total 0.6 mg/dL (0.0-1.0); Blood Urea Nitrogen 14 mg/dL (9-16); Calcium 8.7 mg/dL (8.4-10.2); Carbon Dioxide 27 mmol/L (22-29); Chloride 111 mmol/L (96-108); Estimated Glomerular Filt Rate > 60; Glucose Random 112 mg/dL (60-115); Potassium 3.7 mmol/L (3.3-5.1); Sodium 145 mmol/L (135-145); Total Protein 6.3 g/dL (6.5-8.0)
[2024-01-26 14:34] LABS: Troponin-I High Sensitivity 5.4 ng/L (<3.5-35.0)
[2024-01-26] MEDS: Albuterol/Iprat 2.5/0.5MG 3 ML AMPUL.NEB INHALE (14:35)
[2024-01-26 14:38] VITALS: PULSE 79; RESP 17; O2SAT 95
[2024-01-26 15:22] LABS: Influenza A PCR NEGATIVE (Negative); Influenza B PCR NEGATIVE (Negative); Resp Syncy Virus RNA Qual PCR NEGATIVE (Negative); SARS COV2 PCR INHOUSE NEGATIVE (Negative)
[2024-01-26 15:31] LABS: VBG Base Excess 2.7 mmol/L; VBG HCO3 28 mmol/L (22-26); VBG pCO2 45 mmHg; VBG pH 7.39 (7.32-7.43); VBG pO2 41 mmHg
[2024-01-26 15:32] LABS: Venous Blood Gas Refer to POC result
[2024-01-26 15:42] LABS: Lactic Acid 1.4 mmol/L (0.5-2.0)
[2024-01-26 16:22] VITALS: BP 121/78; PULSE 88; RESP 20; TEMP 36.4; O2SAT 93
--- NOTE | 2024-01-26 16:29 | PC.NURSE ---
pt rousable to name and tactile stimulation, vss, reporting 8/10 generalized pain, no nausea/diarrhea since arrival. pt requesting dilaudid for pain, pt offered tylenol/ibuprofen per MD and declined d/t GI upset. urine sample obtained and sent to lab. no new orders at this time
[2024-01-26 16:31] VITALS: O2SAT 95
[2024-01-26 16:58] LABS: Appearance Urine Clear; Glucose Urine UA Negative (Negative); Leukocyte Esterase Urine Negative (Negative); Nitrite Urine Negative (Negative); PH 6.5 (5.0-9.0); Specific Gravity - Urine >= 1.030 (1.005-1.025); Urine Blood Negative (Negative); Urine Ketones Negative (Negative); Urine Protein Trace mg/dL (Neg-Trace)
[2024-01-26 17:01] LABS: Color Urine Yellow
[2024-01-26 18:42] VITALS: BP 126/63; PULSE 86; RESP 20; TEMP 36.4; O2SAT 95
== END 2024-01-26 18:44 | disposition home or self-care (01) ==
PROVIDERS: Registered Nurse Emergency; Emergency Provider Student in an Organized Health Care Education/Training Program; PCP Family Medicine
DX: J44.9 Chronic obstructive pulmonary disease, unspecified (principal); R06.02 Shortness of breath; R07.89 Other chest pain; R50.9 Fever, unspecified; R94.31 Abnormal electrocardiogram [ECG] [EKG]; Z11.52 Encounter for screening for COVID-19; Z20.822 Contact with and (suspected) exposure to COVID-19; Z79.899 Other long term (current) drug therapy
CPT/HCPCS: 0241U; 36415; 71046; 80053; 81003; 82803; 83605; 84484; 85025; 85610; 87040; 93005; 94640; 99284; 99285

== ENCOUNTER → 2024-01-26 13:53 | Outpatient (BNV) | payer OTHER, SELFPAY | PROVIDERS: Emergency Provider Student in an Organized Health Care Education/Training Program; PCP Family Medicine; Visit Provider Internal Medicine Cardiovascular Disease | DX: R94.31 Abnormal electrocardiogram [ECG] [EKG] (principal) | CPT/HCPCS: 93010 ==